=== PATIENT | male | born 1940 | race Hispanic/Latino ===

== ENCOUNTER 2016-09-24 10:52 | Outpatient (CLI) | payer MEDICARE ==
--- NOTE | 2016-09-25 13:37 | Magnetic Resonance Report ---
MRI RIGHT KNEE WITHOUT CONTRAST: 09/24/16 CLINICAL: Right knee pain. TECHNIQUE: Sagittal proton density fat sat and T2, coronal T2 fat sat and proton density and axial gradient T2*sequences on a 1.5 Saba magnet. FINDINGS: Abnormal signal and tear of the posterior root ligament of the medial meniscus. Partial-thickness defects in the medial femoral cartilage. The lateral meniscus and the lateral femoral cartilage are intact. There is a small knee joint effusion. Mild marrow edema of the lateral tibial metaphysis. No fracture. The anterior cruciate ligament and posterior cruciate ligaments are intact. The collateral ligaments are intact. Intact posterolateral corner structures including the popliteus tendon. The patella is intact with a normal tendon, cartilage and retinaculum. There is moderate prepatellar and infrapatellar subcutaneous soft tissue edema. No popliteal cyst. IMPRESSION: 1. A remote tear of the posterior root ligament of the medial meniscus. 2. 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 3. No ligamentous injury. 4. Moderate knee joint effusion and prepatellar soft tissue edema.
== END 2016-09-24 10:53 | disposition home or self-care (01) ==
LOC: SPVIMAG 10:52
PROVIDERS: ATTEND Internal Medicine
DX: S83.241A Other tear of medial meniscus, current injury, right knee, initial encounter (principal); M17.11 Unilateral primary osteoarthritis, right knee; M25.461 Effusion, right knee; X58.XXXA Exposure to other specified factors, initial encounter; Y93.89 Activity, other specified; Y92.89 Other specified places as the place of occurrence of the external cause; Y99.8 Other external cause status
CPT/HCPCS: 73721